=== PATIENT | female | born 1995 | race Caucasian/White ===

== ENCOUNTER 2022-10-18 12:30 | Emergency (ER) | payer MEDICAID ==
[2022-10-18] MEDS ORDERED: Take Home: Cephalexin 500 MG Cap, 6 Cap Pack PO ONE (13:01)
[2022-10-18] MEDS: Take Home: Acetaminophen/Codeine 300 MG/30 MG, 5 Tab Pack PO ONE ×2 (13:23→15:36)
== END 2022-10-18 13:28 | disposition home or self-care (01) ==
LOC: VM.ED 12:30
DX: T24.211A Burn of second degree of right thigh, initial encounter (principal); L03.115 Cellulitis of right lower limb; Z91.030 Bee allergy status; Z91.010 Allergy to peanuts; Z88.5 Allergy status to narcotic agent; X12.XXXA Contact with other hot fluids, initial encounter
CPT/HCPCS: 99283; A9270-GY

== ENCOUNTER 2022-10-23 16:31 | Emergency (ER) | payer MEDICAID ==
[2022-10-23 20:51] VITALS: BP 110/61; PULSE 89
== END 2022-10-23 18:20 | disposition home or self-care (01) ==
LOC: VM.ED 16:31
DX: T24.011A Burn of unspecified degree of right thigh, initial encounter (principal); L24.9 Irritant contact dermatitis, unspecified cause; Z88.5 Allergy status to narcotic agent; Z91.010 Allergy to peanuts; Z91.030 Bee allergy status
CPT/HCPCS: 16000; 99283